=== PATIENT | female | born 1980 | race African-American/Black ===

== ENCOUNTER 2021-02-13 20:32 | Emergency (ER) | payer OTHER ==
[~2021-02-13] VITALS: Ht 162.6 cm; Wt 59.0 kg
--- NOTE | 2021-02-13 20:43 | NUR ---
PT BIBRA C/O "POSSIBLE SEIZURE IN CAR" BUT NO HEAD TRAUMA. PT AAOX4 BREATHING EVENLY AND UNLABORED. PT ATTACHED TO MONITOR AND POX. MD AT BEDSIDE. PT GIVEN BLANKET AND CALL LIGHT WITHIN REACH
--- NOTE | 2021-02-13 21:30 | NUR ---
LAB AT BEDSIDE
--- NOTE | 2021-02-13 22:05 | NUR ---
URINE COLLECTED AND SENT TO LAB
[2021-02-13 22:09] LABS: BASOPHILS % (AUTO) 0.6 % (0.0-2.0); EOSINOPHILS % (AUTO) 0.1 % (0.0-6.0); HEMATOCRIT 46 % (33-45); HEMOGLOBIN 15.3 g/dL (11.5-14.8); LYMPHOCYTES # (AUTO) 1.9 K/uL (0.8-4.8); LYMPHOCYTES % (AUTO) 24.3 % (20.0-44.0); MEAN CORPUSCULAR HGB CONC 34 g/dl (31.0-36.0); MEAN CORPUSCULAR VOLUME 93 fL (82-100); MONOCYTES # (AUTO) 0.7 K/uL (0.1-1.30); MONOCYTES % (AUTO) 8.6 % (2.0-12.0); NEUTROPHILS # (AUTO) 5.2 K/uL (1.8-8.9); NEUTROPHILS % (AUTO) 66.4 % (43.0-81.0); PLATELET COUNT (AUTO) 283 K/uL (150-450); RED BLOOD CELL COUNT(AUTO) 4.93 MIL/uL (4.0-5.2); WHITE BLOOD COUNT (AUTO) 7.8 K/uL (4.3-11.0)
[2021-02-13 22:19] LABS: CARBON DIOXIDE 27 mmol/L (21-32); CHLORIDE 103 mmol/L (98-107); CREATININE 1.2 mg/dL (0.6-1.3); GLUCOSE 98 mg/dL (74-106); POTASSIUM 3.8 mmol/L (3.5-5.1); SODIUM SERUM 138 mmol/L (136-145); UREA NITROGEN, BLOOD 15 mg/dL (7-18)
[2021-02-13 22:21] LABS: ALCOHOL, BLOOD < 3 mg/dL (0-0)
--- NOTE | 2021-02-13 23:42 | NUR ---
PT RETURN FROM CT.
--- NOTE | 2021-02-14 03:07 | NUR ---
Patient is resting comfortably in bed with eyes closed. Easily aroused. VSS
[2021-02-14 05:43] VITALS: BP 122/98
--- NOTE | 2021-02-14 05:43 | NUR ---
Patient discharged to home in stable condition. Written and verbal after care instructions given. Patient verbalizes understanding of instruction.
== END 2021-02-14 05:48 | disposition home or self-care (01) ==
LOC: ER 20:35
DX: F15.10 Other stimulant abuse, uncomplicated (principal)
CPT/HCPCS: 36415; 70450-TC; 80048-TC; 84484-TC; 84703-TC; 85025-TC; G0480